=== PATIENT | male | born 1970 | race Caucasian/White ===

== ENCOUNTER 2024-04-17 09:25 | Outpatient (CLI) | payer OTHER, SELFPAY ==
--- NOTE | 2024-04-17 09:29 | US_ITS ---
WS: [id number] RIGHT UPPER QUADRANT ULTRASOUND HISTORY: R ABDOMINAL PAIN COMPARISON: None available. Liver: 17.2 cm in length. Mildly enlarged liver. Coarse echotexture throughout the liver. No mass terra ntified. Portal Vein: Normal hepatopetal flow with monophasic waveform. Gallbladder: Mild diffuse gallbladder wall thickening. Moderate amount of sludge within the gallbladd er. On a few images stones are suspected. On the decubitus imaging no stones are identified. Stones w ithin the gallbladder neck cannot be excluded. CBD: 0.4 cm Pancreas: Not visualized. Right kidney: 11.6 cm in length. Normal size and echogenicity. No hydronephrosis or mass. Aorta and IVC: Unremarkable abdominal aorta and IVC. No ascites. US/US abdomen limited 72477 IMPRESSION: 1. Abnormal gallbladder. Mild diffuse gallbladder wall thickening with sludge. Although no stones are identified the gallbladder neck is not well visualized. Stones in the gallbladder neck cannot be excluded. Gallbladder is not hydropic . Recommend evaluation by surgery for possible cholecystectomy. 2. No bile duct dilatation. 3. Hepatic steatosis.
== END 2024-04-17 09:26 | disposition home or self-care (01) ==
LOC: RAD 09:26
PROVIDERS: Visit Provider Nurse Practitioner
DX: K82.9 Disease of gallbladder, unspecified (principal); K76.0 Fatty (change of) liver, not elsewhere classified
CPT/HCPCS: 76705

== ENCOUNTER → 2024-04-24 15:33 | Outpatient (BNVA) | payer OTHER, SELFPAY | PROVIDERS: PCP Nurse Practitioner; Visit Provider Internal Medicine Cardiovascular Disease | DX: R07.9 Chest pain, unspecified (principal); I25.10 Atherosclerotic heart disease of native coronary artery without angina pectoris; E11.8 Type 2 diabetes mellitus with unspecified complications; Z86.73 Personal history of transient ischemic attack (TIA), and cerebral infarction without residual deficits; E78.2 Mixed hyperlipidemia; I10 Essential (primary) hypertension; H53.9 Unspecified visual disturbance; G47.33 Obstructive sleep apnea (adult) (pediatric); R94.31 Abnormal electrocardiogram [ECG] [EKG] | CPT/HCPCS: 93005; 99204 ==

== ENCOUNTER → 2024-05-02 09:37 | Outpatient (BNVA) | payer OTHER, SELFPAY | PROVIDERS: PCP Nurse Practitioner; Referring Provider Nurse Practitioner; Visit Provider Surgery | DX: K80.20 Calculus of gallbladder without cholecystitis without obstruction (principal) | CPT/HCPCS: 99204 ==

== ENCOUNTER → 2024-05-14 05:48 | Day surgery (SDC) | payer OTHER, SELFPAY ==
[2024-05-14] VITALS (18 sets, daily range): BP systolic 150–175; BP diastolic 80–99; PULSE 67–80; RESP 14–25; TEMP 36.1–36.9; O2SAT 92–100; BMI 31.1
--- NOTE | 2024-05-14 05:43 | P.HPUD_ITS ---
Surgery/Procedure H&P Update DATE OF PROCEDURE: May 14, 2024 DATE H&P PERFORMED: 05/02/24 H&P UPDATE INFORMATION: I have reviewed H&P completed within last 30 days, I have examined patient prior to procedure, No changes to prior documentation and H&P is in [facility] on date indicated PLANNED PROCEDURE: Operation Date: 05/14/24 07:00 Proposed Procedures p Laparoscopic Cholecystectomy 61150, K80.20(Not Applicable) - Jaden Fields MD
--- NOTE | 2024-05-14 06:14 | P.ANESASSM_ITS ---
Pre-Anesthetic Assessment Height/Weight: Height 6 ft Weight 230 lb Temp Pulse Resp BP Pulse Ox O2 Del Method 97.0 F L 80 18 150/93 97 Room Air 05/14/24 06:07 05/14/24 06:07 05/14/24 06:07 05/14/24 06:07 05/14/24 06:07 05/14/24 06:07 Preop Diagnosis: Chronic cholecystitis Operation Date: 05/14/24 07:00 Proposed Procedures p Laparoscopic Cholecystectomy 14794, K80.20(Not Applicable) - Jaden Fields MD Was Beta Ashok taken within 24 hours: Yes Was Clonidine taken within 24 hours: N/A Last intake: Intake Last Liquid Date 05/13/24 Last Liquid Time 23:00 Last Solid Date 05/13/24 Last Solid Time 23:00 Social No alcohol and No tobacco Exam alert, oriented x 3, clear to auscultation bilaterally and regular rate & rhythm Airway Submandibular: within normal limits Cervical ROM: within normal limits Mallampati: Class III Dentition: full Anesthetic Plan ASA status: 3 Anesthesia: General Other: No prior issues with anesthesia in the past NPO since yesterday History of hypertension on lisinopril, amlodipine and carvedilol. 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 EKG showing sinus rhythm with RBBB Patient had a large knee surgery 3 months ago and is unable to ambulate currently, using wheelchair Plan for GETA Medications/Allergies Home Medications Medication Instructions Recorded Confirmed Last Taken Type amlodipine 5 mg tablet 5 mg PO DAILY 04/24/24 05/14/24 05/13/24 History aspirin 81 mg tablet,delayed 81 mg PO DAILY 04/24/24 05/11/24 05/11/24 History release atorvastatin 80 mg tablet 40 mg PO DAILY 04/24/24 05/14/24 05/12/24 History carvedilol 25 mg tablet 25 mg PO BID 04/24/24 05/14/24 05/13/24 History cholecalciferol (vitamin D3) 25 25 mcg PO DAILY 04/24/24 05/11/24 05/11/24 History mcg (1,000 unit) capsule glipizide 10 mg tablet 10 mg PO DAILY 04/24/24 05/11/24 05/11/24 History lisinopril 20 mg tablet 20 mg PO DAILY #90 tabs 04/24/24 05/14/24 05/13/24 Rx loratadine 10 mg tablet 10 mg PO DAILY PRN Allergy Symptoms 04/24/24 05/11/24 05/11/24 History metformin 1,000 mg tablet 1,000 mg PO BIDWMEAL 04/24/24 05/14/24 05/13/24 History Allergies Allergy/AdvReac Type Severity Reaction Status Date / Time No Known Allergies Allergy Verified 05/11/24 13:35 [facility] Anesthesia Medical History (Updated 05/02/24 @ 14:09 by Jaden Fields MD) Anxiety disorder, unspecified Essential (primary) hypertension Contact with and (suspected) exposure to other hazardous substances Marcelo syndrome Hyperlipidemia, unspecified Depression, unspecified Insomnia, unspecified Induration penis plastica Pain in right knee Migraine, unspecified, not intractable, without status migrainosus Low back pain, unspecified Legal blindness, as defined in [place] Obesity, unspecified Pain, joint, shoulder Pain in unspecified ankle and joints of unspecified foot Pain in left shoulder Other specified symptoms and signs involving the digestive system and abdomen Type 2 diabetes mellitus with unspecified complications Personal history of transient ischemic attack (TIA), and cerebral infarction without residual deficits Unspecified mood [affective] disorder Sleep apnea Vitamin D deficiency, unspecified Surgical History (Updated 05/02/24 @ 09:55 by BLANCA Sanchez) Hx of CABG Social History (Updated 05/02/24 @ 09:55 by BLANCA Sanchez) Smoking and tobacco/nicotine status: never used tobacco/nicotine Alcohol intake: current Alcohol intake frequency: holidays/special occasions only Data Anesthesia Cardiac Studies: No Data to Display
[2024-05-14] MEDS: sodium chloride 0.9% 1,000 ML 30 ML IV (06:20)
[2024-05-14 06:22] LABS: Glucose Point of Care 245 mg/dL (70-110)
[2024-05-14] MEDS: ceFAZolin 2,000 mg SDV 2000 MG IVP (07:04)
[2024-05-14] MEDS: BUPivacaine 0.25% INJ 30 mL INJECTION (07:40)
[2024-05-14] MEDS: lidocaine-epi 1% PF 1:200,000 30 mL SDV INJECTION (07:40)
--- NOTE | 2024-05-14 08:59 | P.OP_ITS ---
Operative Report Date of procedure: May 14, 2024 Pre-op diagnosis: Symptomatic cholelithiasis Post-op diagnosis: Symptomatic cholelithiasis and chronic cholecystitis Post-op findings: There was inflammatory changes in the right upper quadrant, there was significant adhesions from the omentum to the left lobe of the liver, there were also adhesions from the omentum to the gallbladder indicating chronic inflammation Procedure done: Laparoscopic cholecystectomy Implants: None Specimens removed/disposition: Gallbladder Surgeon: Jaden Fields MD Exhibitions And Collections Manager: EDDY OR STaff Estimated blood loss: 10 Complications: None apparent Brief History: This is a 53-year-old male who presents to my office for evaluation of gallbladder disease, he has been having some atypical epigastric pain, u ltrasound show evidence of a contracted gallbladder with sludge and stones inside. After discussion of all risk and benefits as documented in my preop note we decided to proceed to the OR for a laparoscopic possible open cholecystectomy. Procedure: Patient was brought into the OR, he was placed in a supine position. General anesthesia was given. The abdomen was prepped and draped in the usual sterile fashion. A timeout was conducted. The abdomen was accessed in the left upper quadrant with an Optiview trocar, pneumoperitoneum was achieved and no evidence of visceral injury during entry was noted. Abdomen Kimbrough trocar was placed in the supraumbilical position under direct visualization. Another 5 mm trocars were placed in the epigastrium right upper quadrant and right flank under direct visualization. The patient was placed in a steep reverse Trendelenburg position with the left side down. There were significant adhesions from the omentum to the left lobe of the liver, obscuring the gallbladder, I took down these adhesions carefully with electrocautery. I then grasped the gallbladder by the fundus and elevated, adhesions from the omentum to the gallbladder were also noted, these were taken down with a combination of blunt dissection and electrocautery. The gallbladder appeared to be contracted with the infundibulum retracted, I decided to open the peritoneum anterior to the infundibulum, I carried this opening in the medial lateral direction to the edges of the liver and then on the sides of the gallbladder to improve visualization. This allowed me to grasped the infundibulum and retracted on the inferolateral lateral direction. I then used blunt dissection and electrocautery to carefully dissect around the cystic artery and the cystic duct, I was able to assist call the cystic artery and cystic duct, I was also able to elevate the lower third of the gallbladder from the liver bed thus creating a critical view of safety. I then double clipped the cystic duct and artery proximally and single clipped distally and transected. The gallbladder was removed from the liver bed using electrocautery. Small amount of bleeding was noted from the liver bed, I was able to control this with electrocautery. The gallbladder was then extracted from the abdomen in an Endo Catch bag through the umbilical trocar site. I then proceeded to irrigate the gallbladder bed and liver bed, no evidence of residual bleeding or bile leak was noted. The umbilical trocar site was closed using Ken-Juna suture passer and 0 Vicryl under direct visualization. I then remove the epigastrium right upper quadrant and right flank trocars and direct visualization, the left upper quadrant trocar was used to evacuate the pneumoperitoneum and subsequently removed. The wounds were then closed with #4- 0 Monocryl. Dermabond was applied. At the end of the procedure all counts were correct, the patient tolerated well the procedure and was transferred to the PACU in stable condition.
[2024-05-14] MEDS: fentaNYL 50 mcg/mL INJ 2mL IVP (09:23)
--- NOTE | 2024-05-14 09:51 | ANE.PACU2 ---
Inpatient post-anesthesia follow up: Airway intact: Yes Vital signs: Temperature 97.4 F Pulse Rate 76 Respiratory Rate 17 Blood Pressure 164/90 Pulse Oximetry 92 Oxygen Delivery Me thod Room Air Oxygen Flow Rate 3 Fraction of Inspir ed Oxygen Hydration adequate: Yes Nausea and vomiting: No Pain level: 1 Mental status: Baseline
[2024-05-14] MEDS: oxyCODONE 5 mg IR Tab/Cap PO (10:25)
== END | disposition home or self-care (01) ==
PROVIDERS: PCP Nurse Practitioner; Visit Provider Surgery
PROC: 0FT44ZZ Resection of Gallbladder, Percutaneous Endoscopic Approach (ICD-10-PCS; CPT 47562; principal; 2024-05-14 07:00)
DX: K80.10 Calculus of gallbladder with chronic cholecystitis without obstruction (principal); K66.0 Peritoneal adhesions (postprocedural) (postinfection); E11.9 Type 2 diabetes mellitus without complications; Z79.84 Long term (current) use of oral hypoglycemic drugs; Z86.73 Personal history of transient ischemic attack (TIA), and cerebral infarction without residual deficits; G47.33 Obstructive sleep apnea (adult) (pediatric); Z95.1 Presence of aortocoronary bypass graft; Z98.890 Other specified postprocedural states; Z79.82 Long term (current) use of aspirin; I10 Essential (primary) hypertension
CPT/HCPCS: 47562; 36416; 82962; 88304; J0690; J1100; J2250; J2405; J2704; J2710; J3010; J3490; J7030

== ENCOUNTER → 2024-05-23 08:33 | Outpatient (BNVA) | payer OTHER, SELFPAY | PROVIDERS: PCP Nurse Practitioner; Visit Provider Surgery | DX: R03.0 Elevated blood-pressure reading, without diagnosis of hypertension (principal); Z98.890 Other specified postprocedural states | CPT/HCPCS: 99024 ==

== ENCOUNTER → 2025-02-14 15:24 | Outpatient (BNVA) | payer OTHER, SELFPAY | PROVIDERS: PCP Nurse Practitioner; Visit Provider Nurse Practitioner Family | DX: L20.89 Other atopic dermatitis (principal); L72.0 Epidermal cyst | CPT/HCPCS: 10060; 99204 ==

== ENCOUNTER → 2025-02-21 14:37 | Outpatient (BNVA) | payer OTHER, SELFPAY | PROVIDERS: PCP Nurse Practitioner; Visit Provider Nurse Practitioner Family | DX: L72.0 Epidermal cyst (principal); L81.4 Other melanin hyperpigmentation; L23.1 Allergic contact dermatitis due to adhesives | CPT/HCPCS: 99214 ==

== ENCOUNTER → 2025-02-28 13:28 | Outpatient (BNVA) | payer OTHER, SELFPAY | PROVIDERS: PCP Nurse Practitioner; Visit Provider Nurse Practitioner Family | DX: L72.0 Epidermal cyst (principal) | CPT/HCPCS: 99214 ==

== ENCOUNTER → 2025-03-07 15:11 | Outpatient (BNVA) | payer OTHER, SELFPAY | PROVIDERS: PCP Nurse Practitioner; Visit Provider Nurse Practitioner Family | DX: L72.0 Epidermal cyst (principal) | CPT/HCPCS: 99214 ==